=== PATIENT | female | born 1965 | race Caucasian/White ===

== ENCOUNTER 2023-07-25 04:30 | Emergency (ER) | payer SELFPAY ==
[~2023-07-25] VITALS: Ht 172.7 cm; Wt 89.7 kg
[2023-07-25] MEDS ORDERED: ACET-683 PO (04:38)
[2023-07-25 05:28] LABS: BASO % 0.4 % (0.0-1.0); EOS # 0.3 10^3/uL (0.0-0.5); HEMOGLOBIN 13.6 g/dl (12.0-15.5); LYMPH # 1.6 10^3/uL (1.5-5.0); LYMPH % 15.7 % (24.0-44.0); MEAN CORPUSCULAR HGB CONC 32.4 g/dl (32.0-36.5); MEAN CORPUSCULAR VOLUME 86.4 fl (80.0-96.0); MONO # 0.9 10^3/uL (0.0-0.8); MONO % 8.5 % (2.0-8.0); NEUTROPHILS # 7.5 10^3/uL (1.5-8.5); PLATELET COUNT, AUTOMATED 228 10^3/uL (150-450); RED BLOOD COUNT 4.86 10^6/uL (4.00-5.40); WHITE BLOOD COUNT 10.4 10^3/uL (4.0-10.0)
[2023-07-25 05:47] LABS: LIPASE 58 U/L (12-53)
[2023-07-25 05:49] LABS: ALBUMIN 3.6 G/DL (3.2-5.2); ALKALINE PHOSPHATASE 86 U/L (46-116); ALT/SGPT 21 U/L (7.0-40); AST/SGOT 17 U/L (<34); BILIRUBIN,DIRECT 0.2 MG/DL (<0.4); BILIRUBIN,TOTAL 0.5 MG/DL (0.3-1.2); BLOOD UREA NITROGEN 18 MG/DL (9-23); CALCIUM LEVEL 9.3 MG/DL (8.5-10.1); CARBON DIOXIDE LEVEL 27 MMOL/L (20-31); CHLORIDE LEVEL 107 MMOL/L (98-107); CREATININE FOR GFR 0.96 MG/DL (0.55-1.30); GLOMERULAR FILTRATION RATE > 60.0 (>51); GLUCOSE, FASTING 104 MG/DL (60-100); POTASSIUM SERUM 4.2 MMOL/L (3.5-5.1); SODIUM LEVEL 142 MMOL/L (136-145); TOTAL PROTEIN 7.2 G/DL (5.7-8.2)
[2023-07-25 06:55] LABS: APPEARANCE, URINE HAZY (CLEAR); BACTERIA, URINE AUTO 1+ (NEGATIVE); BILIRUBIN, URINE AUTO NEGATIVE (NEGATIVE); BLOOD, URINE BLOOD 2+ (NEGATIVE); COLOR, URINE YELLOW (YELLOW); GLUCOSE, URINE (UA) AUTO NEGATIVE (NEGATIVE); KETONE, URINE AUTO NEGATIVE (NEGATIVE); LEUKOCYTE ESTERASE, URINE AUTO 2+ (NEGATIVE); MUCUS, URINE SMALL (NEGATIVE); NITRITE, URINE AUTO NEGATIVE (NEGATIVE); PROTEIN, URINE AUTO 1+ mg/dL (NEGATIVE); RBC, URINE AUTO 11 /HPF (0-3); SQUAMOUS EPITHELIAL CELL UR AU 1 /HPF (0-6); UROBILINOGEN, URINE AUTO 0.2 mg/dL (0.0-2.0); WBC, URINE AUTO 39 /HPF (0-3)
[2023-07-25] MEDS ORDERED: ONDANSETRON 4MG 2ML VIAL IV ONE (07:35)
[2023-07-25] MEDS ORDERED: NS 1,000 ML IV ONE (07:35)
[2023-07-25] MEDS ORDERED: KETOROLAC 30 MG/ML 1ML VIAL IV ONE (07:35)
[2023-07-25] MEDS ORDERED: FLOM0.4C39 PO (09:50)
[2023-07-25] MEDS ORDERED: CEFD300C42 PO (09:50)
[2023-07-25] MEDS ORDERED: KETO10TAB PO (09:50)
[2023-07-25] MEDS ORDERED: ONDA4TAB6 PO (09:50)
[2023-07-25] MEDS ORDERED: CEFDINIR 300 MG CAP (OMNICEF) PO ONE (10:05)
[2023-07-25] MEDS ORDERED: TAMSULOSIN 0.4 MG CAP PO ONE (10:05)
[2023-07-25 10:52] VITALS: BP 142/83; TEMP 97.5; O2SAT 97
== END 2023-07-25 10:54 | disposition home or self-care (01) ==
LOC: M ED 04:30
DX: N20.1 Calculus of ureter (principal)
CPT/HCPCS: 74176; 80048; 80076; 81001; 83690; 85025; 96374; 96375; 99285; J1885; J2405